=== PATIENT | female | born 1980 | race Caucasian/White ===

== ENCOUNTER 2016-07-14 04:09 | Inpatient (IN) | payer BC, OTHER ==
[2016-07-14] MEDS ORDERED: Mineral Oil Sterile, TOPICAL* 25 ML BTL ONE (13:17)
[2016-07-14] MEDS ORDERED: oxyCODONE/Acetamin 5/325 MG* TAB PO PRN (15:55)
[2016-07-14] MEDS ORDERED: Dibucaine 1% 28.35 GM TUBE PR PRN (15:55)
[2016-07-14] MEDS ORDERED: Acetaminophen TAB* 325 MG PO PRN (15:55)
[2016-07-14] MEDS: Witch Hazel PAD* JAR TOPICAL PRN (19:29)
[2016-07-14] MEDS: Docusate CAP* 100 MG PO SCH (19:42)
[2016-07-14] MEDS: Ibuprofen TAB* 600 MG PO PRN (19:42)
[2016-07-15 06:54] LABS: Hematocrit 40 % (35-47); Hemoglobin 13.4 g/dl (12.0-16.0); Mean Corpuscular HGB Conc 34 g/dl (31-36); Mean Corpuscular Hemoglobin 31 pg (27-31); Mean Corpuscular Volume 93 fL (80-97); Mean Platelet Volume 8 um3 (7.4-10.4); Red Blood Count 4.31 10^6/ul (4.0-5.4); Red Cell Distribution Width 13 % (10.5-15); White Blood Count 18.6 10^3/ul (3.5-10.8)
[2016-07-15] MEDS: Ibuprofen TAB* 600 MG PO PRN ×3 (08:44→21:20)
[2016-07-15] MEDS: Docusate CAP* 100 MG PO SCH ×3 (08:44→21:21)
[2016-07-15] MEDS ORDERED: Ferrous Gluconate TAB* 324 MG TAB PO SCH (09:00)
--- NOTE | 2016-07-15 10:17 | PTEDU ---
Patient Name: BIB SANCHES BIB SANCHES selected video: Follow Me Mum: [employer] [facility] [employer] Successful to view on 06/23 at 10:16:49 AM from [email or web address]
[2016-07-15] MEDS: Witch Hazel PAD* JAR TOPICAL PRN (10:42)
--- NOTE | 2016-07-15 16:26 | PTEDU ---
Patient Name: BIB SANCHES BIB SANCHES selected video: BBOB: Nurturing Your Gorgeous \T\Growing Baby by to view on 07/15/2016 at 4:25:23 PM from [email or web address]
[2016-07-16] MEDS: Ibuprofen TAB* 600 MG PO PRN ×2 (03:05→09:07)
[2016-07-16 07:56] VITALS: BP 127/75
[2016-07-16] MEDS: Docusate CAP* 100 MG PO SCH ×2 (09:07→14:06)
--- NOTE | 2016-07-16 13:23 | PTEDU ---
Patient Name: BIB SANCHES BIB SANCHES selected video: BBOB: Bonding Through Massage to view on 07/16/2016 at 1:21 :38 PM from [email or web address]
--- NOTE | 2016-07-16 13:23 | PTEDU ---
Patient Name: BIB SANCHES BIB SANCHES selected video: Never Ever Shake a Baby to view on 07/16/2016 at 1:22:42 PM from Tyrese [id number]
== END 2016-07-16 14:16 | disposition home or self-care (01) | DRG 560 ==
LOC: MCHOBOUT 04:09 → MCHOB 06:59
PROVIDERS: ADMIT Midwife; ATTEND Nurse Practitioner
PROC: 0KQM0ZZ Repair Perineum Muscle, Open Approach (ICD-10-PCS; principal; 2016-07-14)
PROC: 4A1HX4Z Monitoring of Products of Conception, Cardiac Electrical Activity, External Approach (ICD-10-PCS; 2016-07-14)
PROC: 10E0XZZ Delivery of Products of Conception, External Approach (ICD-10-PCS; 2016-07-14)
PROC: 10907ZC Drainage of Amniotic Fluid, Therapeutic from Products of Conception, Via Natural or Artificial Opening (ICD-10-PCS; 2016-07-14)
DX: O69.81X0 Labor and delivery complicated by cord around neck, without compression, not applicable or unspecified (principal); E74.02 Pompe disease; O70.1 Second degree perineal laceration during delivery; Z3A.39 39 weeks gestation of pregnancy; Z37.0 Single live birth; Z81.8 Family history of other mental and behavioral disorders; O26.893 Other specified pregnancy related conditions, third trimester
CPT/HCPCS: 36415; 85025; A9270-GY

== ENCOUNTER 2016-08-24 17:35 | Day surgery (SDC) | payer BC ==
--- NOTE | 2016-08-24 20:38 | RAD ---
Indication: Persistent bleeding, 6 weeks . Real-time sonography of the pelvis was performed. The uterus measures 11.3 x 5.8 x 3.0 cm. Endometrial echo measures up to 29 mm and demonstrates thickening and echogenic material. The possibility of products of conception should BE considered. The right ovary measures 29 x 20 x 15 mm. Left ovary measures 21 x 18 x 16 mm. IMPRESSION: Thickened endometrium measuring up to 29 mm with heterogeneous echogenic material. The possibility of retained products of conception should BE considered.
[2016-08-24 20:48] LABS: Hematocrit 40 % (35-47); Hemoglobin 13.4 g/dl (12.0-16.0); Mean Corpuscular HGB Conc 33 g/dl (31-36); Mean Corpuscular Hemoglobin 31 pg (27-31); Mean Corpuscular Volume 94 fL (80-97); Mean Platelet Volume 7 um3 (7.4-10.4); Red Blood Count 4.26 10^6/ul (4.0-5.4); Red Cell Distribution Width 13 % (10.5-15); White Blood Count 8.4 10^3/ul (3.5-10.8)
[2016-08-24 21:06] LABS: Albumin 3.9 g/dL (3.2-5.2); BUN/Creatinine Ratio 15.1 (8-20); Calcium 9.2 mg/dL (8.6-10.3); EGFR African American 167.9 (>60); EGFR Non-African American 130.5 (>60); Globulin 2.7 g/dL (2-4); Potassium 3.6 mmol/L (3.5-5.0); Total Bilirubin 0.3 mg/dL (0.2-1.0); Total Protein 6.6 g/dL (6.4-8.9)
[2016-08-24] MEDS ORDERED: DOXYcycline IV* 100 MG in NS 0.9% 250 ML* 250 ML IVPB ONE (23:19)
--- NOTE | 2016-08-24 23:23 | ED ---
Julien Calderon Alok, scribed for Chantelle Barajas MD on 08/24/16 at 1939 . Abdominal Pain/Female - HPI Summary HPI Summary: 36F presents to the ED for vaginal bleeding on and off since her vaginal 6 weeks ago, worsening today. Pt states that she began bleeding in the first two weeks since giving to her child which subsided until one week ago where she has been bleeding off and on. Pt states that since 1300 this afternoon her vaginal bleeding has been heavier than before, and has bled through a total of 5 pads since this afternoon. Pt also notes vaginal pain described as "muscular" as well as notes abd cramping. Pt denies fever. Pt has had no pregnancies before is currently breast feeding her baby. Pt drinks ETOH occasionally. - History of Current Complaint Chief Complaint: EDVaginalBleeding Stated Complaint: VAGINAL BLEEDING Time Seen by Provider: 08/24/16 18:49 Hx Obtained From: Patient ?: No Onset/Duration: Lasting Days, Still Present, Worse Since - Today Severity Initially: Moderate Severity Currently: Moderate Pain Intensity: 4 Pain Scale Used: 0-10 Numeric Location: Diffuse Character: Cramping Aggravating Factor(s): Nothing Alleviating Factor(s): Nothing Associated Signs and Symptoms: Positive: Vaginal Bleeding. Negative: Fever Allergies/Adverse Reactions: Allergies Allergy/AdvReac Type Severity Reaction Status Date / Time No Known Allergies Allergy Verified 06/22/16 21:13 PMH/Surg Hx/FS Hx/Imm Hx Endocrine/Hematology History: Denies: Hx Diabetes Cardiovascular History: Denies: Hx Hypertension History: Reports: Other Problems/Disorders - ulcerative colitis Infectious Disease History: Denies: Traveled Outside the [place] in Last 30 Days - Family History Known Family History: Negative: Diabetes - Social History Lives: With Family Alcohol Use: Occasionally Hx Substance Use: No Substance Use Type: Reports: None Hx Tobacco Use: No Smoking Status (MU): Never Smoked Tobacco Have You Smoked in the Last Year: No Review of Systems Negative: Fever Positive: Abdominal Pain Positive: other - Vaginal bleeding, Vaginal pain All Other Systems Reviewed And Are Negative: Yes Physical Exam Triage Information Reviewed: Yes Vital Signs On Initial Exam: Initial Vitals Temp Pulse Resp BP Pulse Ox 98.2 F 79 16 117/80 100 08/24/16 17:40 08/24/16 17:40 08/24/16 17:40 08/24/16 17:40 08/24/16 17:40 Vital Signs Reviewed: Yes Appearance: Positive: Well-Appearing, No Pain Distress Skin: Positive: Warm, Skin Color Reflects Adequate Perfusion, Dry Eyes: Positive: EOMI, CHANCE ENT: Positive: Pharynx normal, TMs normal Neck: Positive: Supple, Nontender Respiratory/Lung Sounds: Positive: Clear to Auscultation, Breath Sounds Present. Negative: Rales, Rhonchi, Wheezes Cardiovascular: Positive: RRR, Other - no gallop. Negative: Murmur, Rub Abdomen Description: Positive: Nontender, Soft, Other: - no rebound. Negative: Distended, Guarding Bowel Sounds: Positive: Present Pelvic Exam: Positive: other - Moderate amount of bleeding with no pain Musculoskeletal: Positive: Strength/ROM Intact. Negative: Edema Left, Edema Right Neurological: Positive: Sensory/Motor Intact, Alert, Oriented to Person Place, Time, CN Intact II-III Psychiatric: Positive: Affect/Mood Appropriate Diagnostics - Vital Signs Vital Signs Temp Pulse Resp BP Pulse Ox 08/24/16 17:40 98.2 F 79 16 117/80 100 - Laboratory Lab Results: Lab Results 08/24/16 08/24/16 Range/Units 20:38 20:38 WBC 8.4 (3.5-10.8) 10^3/ul RBC 4.26 (4.0-5.4) 10^6/ul Hgb 13.4 (12.0-16.0) g/dl Hct 40 (35-47) % MCV 94 (80-97) fL MCH 31 (27-31) pg MCHC 33 (31-36) g/dl RDW 13 (10.5-15) % Plt Count 281 (150-450) 10^3/ul MPV 7 L (7.4-10.4) um3 Neut % (Auto) 60.3 (38-83) % Lymph % (Auto) 25.1 (25-47) % [place] % (Auto) 11.3 H (1-9) % Eos % (Auto) 2.4 (0-6) % Baso % (Auto) 0.9 (0-2) % Absolute Neuts (auto) 5.1 (1.5-7.7) 10^3/ul Absolute Lymphs (auto) 2.1 (1.0-4.8) 10^3/ul Absolute Monos (auto) 1.0 H (0-0.8) 10^3/ul Absolute Eos (auto) 0.2 (0-0.6) 10^3/ul Absolute Basos (auto) 0.1 (0-0.2) 10^3/ul Absolute Nucleated RBC 0 10^3/ul Nucleated RBC % 0 Sodium 137 (133-145) mmol/L Potassium 3.6 (3.5-5.0) mmol/L Chloride 107 (101-111) mmol/L Carbon Dioxide 24 (22-32) mmol/L Anion Gap 6 (2-11) mmol/L BUN 8 (6-24) mg/dL Creatinine 0.53 (0.51-0.95) mg/dL Est GFR ( Amer) 167.9 (>60) Est GFR (Non-Af Amer) 130.5 (>60) BUN/Creatinine Ratio 15.1 (8-20) Glucose 89 (70-100) mg/dL Calcium 9.2 (8.6-10.3) mg/dL Total Bilirubin 0.30 (0.2-1.0) mg/dL AST 14 (13-39) U/L ALT 13 (7-52) U/L Alkaline Phosphatase 76 (34-104) U/L Total Protein 6.6 (6.4-8.9) g/dL Albumin 3.9 (3.2-5.2) g/dL Globulin 2.7 (2-4) g/dL Albumin/Globulin Ratio 1.4 (1-3) Beta HCG, Quant 13.07 mIU/mL Result Diagrams: 08/24/16 20:38 08/24/16 20:38 Lab Statement: Any lab studies that have been ordered have been reviewed, and results considered in the medical decision making process. - Additional Comments Diagnostic Additional Comments: Pelvis US - IMPRESSION: Thickened endometrium measuring up to 29 mm with heterogeneous echogenic material. The possibility of retained products of conception should BE considered. Abdominal Pain Fem Course/Dx - Course Course Of Treatment: case discussed with Dr. Paris who is admitting the pt - Diagnoses Provider Diagnoses: Retained products of conception - Provider Notifications Discussed Care Of Patient With: Evelyn Luis - Will come examine pt Time Discussed With Above Provider: 21:50 Discharge - Discharge Plan Condition: Stable Disposition: ADMITTED TO [facility] documentation as recorded by the Julien weber Alok accurately reflects the service I personally performed and the decisions made by me, Chantelle Barajas MD.
--- NOTE | 2016-08-24 23:28 | HP ---
H&P (Free Text) History and Physical: CC: vaginal bleeding HPI: Pt is 6wks pp s/p NVD. Her bleeding had stopped completely and then about 1wk ago she started having light bleeding until this afternoon when it became very heavy and she started passing clots and was soaking through 1 maxi pad/ hour. She has had some period cramping today. No fever/chills. Feeling well otherwise. Breast-feeding her daughter exclusively without any issues. Meds: PNV NKDA PMH: ulcerative colitis PSH: umbilical hernia repair Outbound Tele[employer] Representative Hx: , 1 ETOP Soc Hx: no alcohol, tobacco or illicit drug use ROS: otherwise negative Exam VS stable, afebrile Gen: NAD Abd: soft, very minimal uterine tenderness to deep palpation Pelvic: cx 1cm dilated, mod blood on exam. US: suspicious for retained POC, 2.9cm heterogenous endometrial stripe H/H wnl Assessment: 6wks pp with retained POC and heavy vaginal bleeding. Plan: suction D&C
[2016-08-25] MEDS ORDERED: Chloroprocaine 2%* 20 ML VIAL ONE (00:26)
[2016-08-25] MEDS ORDERED: fentaNYL* 50 MCG/ML 2 ML VIAL (100 MCG VIAL) ONE ×2 (00:26→02:13)
[2016-08-25] MEDS ORDERED: Famotidine IV* 10 MG/ML 2 ML (20 mg) ONE (00:27)
[2016-08-25] MEDS ORDERED: Acetaminophen TAB* 325 MG PO PRN (00:59)
[2016-08-25] MEDS ORDERED: Ondansetron INJ* 2 MG/ML VIAL IV PRN (00:59)
[2016-08-25] MEDS ORDERED: PROCHLORPERAZINE INJ 5 MG/ML 2 ML VIAL IV PRN (00:59)
[2016-08-25] MEDS ORDERED: Ketorolac INJ* 30 MG/ML 1 ML VIAL IV PRN (00:59)
[2016-08-25] MEDS ORDERED: fentaNYL* 50 MCG/ML 2 ML VIAL (100 MCG VIAL) IV PRN (00:59)
[2016-08-25] MEDS ORDERED: Misoprostol TAB* 200 MCG ONE (01:00)
[2016-08-25] MEDS ORDERED: Ondansetron INJ* 2 MG/ML VIAL ONE (01:01)
[2016-08-25] MEDS ORDERED: OXYTOCIN* 10 UNITS/ML 1 ML VIAL ONE (01:12)
[2016-08-25] MEDS ORDERED: EPHEDrine (Pressors)* 50 MG/ML VIAL ONE (01:16)
[2016-08-25] MEDS ORDERED: Ketorolac INJ* 30 MG/ML 1 ML VIAL ONE (01:53)
[2016-08-25 03:00] VITALS: BP 102/61
--- NOTE | 2016-08-25 15:12 | OP ---
DATE OF OPERATION: 08/24/16 [facility] DATE OF : 80 SURGEON: Evelyn Luis MD ANESTHESIOLOGIST: Dr. Loja ANESTHESIA: Spinal. PRE-OP DIAGNOSIS: Retained products of conception. POST-OP DIAGNOSIS: Retained products of conception. OPERATIVE PROCEDURE: Suction dilation and curettage. INDICATIONS: The patient arrived to the emergency department with heavy vaginal bleeding. She is 6 weeks' post-. Her bleeding had stopped few weeks after delivery, but then started again a week ago, was very light until today when the bleeding increased and she was saturating 1 maxi pad an hour. She arrived to the emergency department where her vital signs were stable. Hemoglobin and hematocrit were normal, but ultrasound showed suspected retained products of conception. On exam, her cervix did seem to be 1-cm dilated. This situation was discussed with the patient and her partner and a decision was made to proceed with surgical removal of the retained products of conception. The risks of perforation, hemorrhage, and infection were reviewed with the patient and consents were signed. She was also given the option of medical management with misoprostol. ANESTHESIA: Spinal. ESTIMATED BLOOD LOSS: 500 mL. SPECIMEN: Products of conception. FLUIDS: Crystalloid. DRAINS: 200 mL of urine drained by a straight cath prior to the procedure. FINDINGS: There is a portion of densely adherent likely placenta located at the fundus of the uterus, which I was unable to completely remove via suction or sharp curette. Intraoperatively, the patient was given 800 mcg of misoprostol rectally and was also given Pitocin in her LR. The procedure was performed under ultrasound guidance. DESCRIPTION OF PROCEDURE: The patient was taken to the operating room where she was given spinal anesthesia that was found to be adequate. She was prepped and draped in the dorsal lithotomy position in [facility]. Speculum was placed in the vagina to expose the cervix and the anterior lip of the cervix was grasped with a single-tooth tenaculum. The uterus was sounded at 10.5 cm. Size 8 suction cannula was then assembled and turned on and inserted into the uterine cavity under ultrasound guidance. Small amount of products of conception were received as well as moderate amount of blood. A piece of retained product was noted at the fundus of the uterus that was difficult to remove with a suction cannula; therefore, sharp curettage was performed under ultrasound guidance and small pieces of the retained products were received via curettage; however, the bulk of the retained products could not be removed from the uterine wall. Due to the moderate amount of bleeding, the patient was given misoprostol and Pitocin was added to her IV fluid. Along with bimanual massage, this resulted in improved hemostasis and the uterus became firm. The patient was observed for several minutes and continued good hemostasis was noted. The tenaculum was removed from the cervix. The patient was placed back in the supine position. A repeat ultrasound was done and there appeared to still be approximately 3-cm portion of retained products of conception at the fundus of the uterus. The patient was then moved to the stretcher and taken to the recovery room in stable condition. [id number]/[facility] #: [id number] NICO
== END 2016-08-25 03:20 | disposition home or self-care (01) ==
LOC: ED 17:35 → OR 23:19
PROVIDERS: ATTEND Obstetrics & Gynecology
DX: O72.2 Delayed and secondary postpartum hemorrhage (principal)
CPT/HCPCS: 36415; 76856; 80053; 84702; 85025; 88305; 96374; 96375; 99284; A9270-GY; J1885; J2400; J2405; J2590; J3010

== ENCOUNTER 2018-08-07 17:56 | Inpatient (IN) | payer BC ==
[2018-08-07] MEDS ORDERED: Buffered Lidocaine 1% SYRIN* 1 ML/SYRINGE INTRADERM ONE (22:41)
[2018-08-07] MEDS ORDERED: Misoprostol TAB* 100 MCG VAGINAL ONE (22:41)
[2018-08-07] MEDS ORDERED: Lactated Ringers 1000 ML Bag* 1,000 ML IV ONE (22:41)
--- NOTE | 2018-08-07 22:50 | HP ---
General Information - Reason for Visit ROM @4pm. [place]ingen one small gush of fluid. has not really felt any leaking since. Started having some mild cramps initially but then they resolved. - General Information Maternal Age: 37 Grav: 3 Para: 1 SAB: 0 IEA: 1 Estimated Due Date: 08/08/18 Determined By: LMP Maternal Blood Type and Rh: O Positive - Results this Serology/RPR Result: Non-Reactive Rubella Result: Immune HBsAg Result: Negative HIV Result: Negative GBS Culture Result: Negative Past Medical History Delivery History: Hx Complicated Vaginal Delivery - retained POC Pertinent Past Medical History: Non-Contributory Pertinent Past Surgical History: See Records Pertinent Family History: Non-Contributory - Antepartal Records Antepartal Records: Reviewed, Uncomplicated Review of Systems Constitutional: Comfortable CV Complaint: No Respiratory: Shortness of Breath: No Gastrointestinal: No Nausea/Vomiting, Normal Bowel Movement Genitourinary: Leaking Fluid, No Dysuria, No Bleeding Musculoskeletal: No Complaint Neurological: No Headache Movement: Normal Exam Allergies/Adverse Reactions: Allergies No Known Allergies Allergy (Verified 07/06/18 12:56) WNL Lab Values - Entire Visit: Laboratory Tests 08/07/18 18:14 Vag Amniotic Fld Detect Positive - Measurements Height: 5 ft 8.5 in Weight: 192 lb Weight in lbs: [phone] Body Mass Index (BMI): 28.8 Pre- Weight: 151 lb Weight Gained This : 41 lbs and 0 ozs - Exam Breast: Breast Exam Deferred Extremities: No Edema Heart: Normal Rhythm/Heart Sounds HEENT: No Significant Findings - Abdominal Exam Abdomen Exam: Non-Tender - Ultrasound/Biophysical Profile Ultrasound Status: Not Done Targeted Exam Findings Cervical Exam: 1cm Effacement: 50% Station: -3 Presenting Part: Vertex Membrane Status: Questionable SROM Amniotic Fluid Evaluation: Positive ROM Plus EFM Findings - External Monitor Findings Baseline Heart Rate: 120 External Monitor Findings: Accelerations Present, No Pattern of Variable or Late Decelerations, Variability Moderate, Baseline Stable Contractions: None Assessment/Plan - Assessment @39.6wks with suspected ROM, no signs of labor. Hx significant for retained POC necessitating D&C x2 @6&7wks pp. - Plan Plan: Induction, Cervical Ripening, Admit - Anticipate Vaginal Delivery
[2018-08-07] MEDS ORDERED: Misoprostol TAB* 100 MCG PO SCH (23:00)
[2018-08-07] MEDS ORDERED: Lactated Ringers 1000 ML Bag* 1,000 ML IV SCH (23:00)
[2018-08-08] MEDS ORDERED: Promethazine INJ(RESTRICTED)* 25 MG/ML 1 ML VIAL IV PRN (03:31)
[2018-08-08] MEDS ORDERED: Nalbuphine* 10 MG/ML 1 ML VIAL IV PRN (03:31)
[2018-08-08 04:13] LABS: ABS Basophils 0.1 10^3/ul (0-0.2); ABS Eosinophils 0.1 10^3/ul (0-0.6); ABS Lymphocytes 2.4 10^3/ul (1.0-4.8); ABS Neutrophils 5.7 10^3/ul (1.5-7.7); Eosinophil % 1.3 %; Hematocrit 39 % (35-47); Hemoglobin 13.1 g/dL (12.0-16.0); Lymphocyte % 25.6 %; Mean Corpuscular HGB Conc 34 g/dL (31-36); Mean Corpuscular Hemoglobin 31 pg (27-31); Mean Corpuscular Volume 91 fL (80-97); Mean Platelet Volume 7.4 fL (7.4-10.4); Platelet Count 204 10^3/uL (150-450); Red Blood Count 4.22 10^6 /uL (3.70-4.87); Red Cell Distribution Width 13 % (10-15); White Blood Count 9.3 10^3/uL (3.5-10.8)
[2018-08-08] MEDS ORDERED: OBEPIDURAL* 250 ML EPIDURAL ONE (07:19)
[2018-08-08] MEDS ORDERED: Oxytocin in LR* 20 UNITS/1,000 ML BAG IVPB ONE ×3 (08:12→12:50)
[2018-08-08] MEDS ORDERED: Famotidine TAB* 20 MG PO PRN (08:14)
[2018-08-08] MEDS ORDERED: Lactated Ringers 1000 ML Bag* 1,000 ML IV ONE (08:14)
[2018-08-08] MEDS ORDERED: Sodium Citrate/Citric Acid* 15 ML UDC PO PRN (08:14)
[2018-08-08] MEDS ORDERED: Phenylephrine 40 MCG/ML SYRINGE IV PUSH PRN ×2 (08:14)
[2018-08-08] MEDS ORDERED: Phenylephrine 40 MCG/ML SYRINGE ONE (08:30)
[2018-08-08] MEDS ORDERED: OBEPIDURAL* 250 ML EPIDURAL SCH (09:00)
[2018-08-08] MEDS ORDERED: Lactated Ringers 1000 ML Bag* 1,000 ML IV SCH ×2 (09:00→10:00)
[2018-08-08] MEDS ORDERED: Glycerin ADULT SUPP PR PRN (09:40)
[2018-08-08] MEDS ORDERED: Witch Hazel PAD* JAR TOPICAL PRN (09:40)
[2018-08-08] MEDS ORDERED: ceFOXitin 2 GM IVPREMIX* 2 GM/50 ML BAG IVPB ONE ×2 (09:43→18:15)
[2018-08-08] MEDS ORDERED: Lidocaine 1% INJ* 10 MG/ML 30 ML SDV ONE (09:48)
--- NOTE | 2018-08-08 09:48 | PROCNOTE ---
[facility] OB: Delivery Note - Delivery A Date of : 08/08/18 Time of : 09:18 Sex: Male Score 1 Minute: 9 Score 5 Minutes: 9 Gestational Age in Weeks and Days at Delivery: 40 Weeks and 0 Days Delivery Method: Spontaneous Vaginal Labor: Induced Did Patient attempt ?: N/A, No Previous Amniotic Fluid: Clear Estimated Blood Loss: 500 Anesthesia/Analgesia: CEI for Labor Delivered By: Josh Felix - Nursery Level of Nursery: Regular/Bedside - Perineum Perineal Injury: Perineal Laceration Perineal Injury Comment: small second degree Perineal Repair: By Delivering Practioner - repair after 20 cc 1% lidocaine/ 2.0 vicryl used standard fashion - Events Delivery Events of Note: Pitocin Only After Delivery - placenta delivered spontaneous/3 vc / exploration of uterus to assure intact/ no evidence of retained placenta., Post- Bleeding - Meds Given
[2018-08-08] MEDS ORDERED: Misoprostol TAB* 200 MCG ONE (11:25)
[2018-08-08] MEDS ORDERED: Simethicone TAB* 80 MG TAB.CHEW PO SCH (12:30)
[2018-08-08] MEDS ORDERED: Misoprostol TAB* 200 MCG PR ONE (12:41)
[2018-08-08] MEDS ORDERED: Oxytocin in LR* 20 UNITS/1,000 ML BAG IVPB SCH (13:00)
[2018-08-08] MEDS ORDERED: Carboprost Tromethamine* 250 MCG INJ ONE (14:44)
[2018-08-08 14:59] LABS: ABS Basophils 0.1 10^3/ul (0-0.2); ABS Lymphocytes 1.4 10^3/ul (1.0-4.8); ABS Monocytes 1.2 10^3/ul (0-0.8); ABS Neutrophils 11.5 10^3/ul (1.5-7.7); Hematocrit 29 % (35-47); Hemoglobin 10.1 g/dL (12.0-16.0); Mean Corpuscular HGB Conc 35 g/dL (31-36); Mean Corpuscular Hemoglobin 32 pg (27-31); Mean Corpuscular Volume 92 fL (80-97); Mean Platelet Volume 7.7 fL (7.4-10.4); Nucleated Red Blood Cells % 0.1; Platelet Count 166 10^3/uL (150-450); Red Cell Distribution Width 13 % (10-15); White Blood Count 14.3 10^3/uL (3.5-10.8)
[2018-08-08 15:19] LABS: Schistocytes ABSENT
[2018-08-08 15:21] LABS: Platelet Count 166 10^3/ul (150-450)
[2018-08-08 15:59] LABS: Activated Partial Thrombo Time 31.8 seconds (26.0-38.0); INR 0.85 (0.82-1.09)
[2018-08-08] MEDS ORDERED: Carboprost Tromethamine* 250 MCG INJ IM ONE (16:00)
[2018-08-08 16:06] LABS: Fibrinogen 305.3 mg/dL (110.8-404.3)
[2018-08-08] MEDS: Docusate CAP* 100 MG PO SCH ×2 (19:36→19:40)
[2018-08-08] MEDS: Ferrous Gluconate TAB* 324 MG TAB PO SCH (21:37)
[2018-08-08] MEDS: Acetaminophen TAB* 325 MG PO PRN (21:47)
[2018-08-08] MEDS: Dibucaine 1% 28.35 GM TUBE PR PRN (21:47)
[2018-08-09] MEDS: Acetaminophen TAB* 325 MG PO PRN (07:36)
[2018-08-09] MEDS: Docusate CAP* 100 MG PO SCH ×3 (07:36→20:39)
[2018-08-09] MEDS: Ferrous Gluconate TAB* 324 MG TAB PO SCH ×2 (07:36→20:39)
[2018-08-09] MEDS: Prenatal Vitamin TAB PO SCH (07:36)
[2018-08-09 07:53] LABS: ABS Eosinophils 0.1 10^3/ul (0-0.6); ABS Monocytes 0.9 10^3/ul (0-0.8); ABS Neutrophils 6.8 10^3/ul (1.5-7.7); Eosinophil % 0.6 %; Hematocrit 23 % (35-47); Hemoglobin 8.3 g/dL (12.0-16.0); Lymphocyte % 20.6 %; Mean Corpuscular HGB Conc 36 g/dL (31-36); Mean Corpuscular Hemoglobin 33 pg (27-31); Mean Corpuscular Volume 92 fL (80-97); Mean Platelet Volume 7.4 fL (7.4-10.4); Platelet Count 183 10^3/uL (150-450); Red Blood Count 2.53 10^6 /uL (3.70-4.87); Red Cell Distribution Width 14 % (10-15); White Blood Count 9.8 10^3/uL (3.5-10.8)
--- NOTE | 2018-08-09 19:39 | PTEDU ---
Patient Name: BIB SANCHES BIB SANCHES selected video: Metastatic Breast Cancer: Mckenzie's Story to view on 08/09/2018 at 7:38:13 PM from [email or web address]
--- NOTE | 2018-08-09 19:40 | PTEDU ---
Patient Name: BIB SANCHES BIB SANCHES selected video: Follow Me Mum: [employer] to Successful to view on 08/09 at 7:40:04 PM from [email or web address]
--- NOTE | 2018-08-09 20:36 | PTEDU ---
Patient Name: BIB SANCHES BIB SANCHES selected video: BBOB: Bonding Through Massage to view on 08/09/2018 at 8:35: 27 PM from [email or web address]
[2018-08-09] MEDS: Dibucaine 1% 28.35 GM TUBE PR PRN (20:41)
[2018-08-10] MEDS: Prenatal Vitamin TAB PO SCH (07:44)
[2018-08-10] MEDS: Ferrous Gluconate TAB* 324 MG TAB PO SCH (07:44)
[2018-08-10] MEDS: Acetaminophen TAB* 325 MG PO PRN (07:44)
[2018-08-10] MEDS: Docusate CAP* 100 MG PO SCH (07:44)
[2018-08-10 08:54] VITALS: BP 132/75
== END 2018-08-10 14:20 | disposition home or self-care (01) | DRG 560 ==
LOC: MCHOBOUT 17:56 → UNDOADMIN 20:12 → MCHOB 20:12
PROVIDERS: ADMIT Obstetrics & Gynecology; ATTEND Obstetrics & Gynecology
PROC: 10E0XZZ Delivery of Products of Conception, External Approach (ICD-10-PCS; principal; 2018-08-08)
PROC: 3E033VJ Introduction of Other Hormone into Peripheral Vein, Percutaneous Approach (ICD-10-PCS; 2018-08-08)
PROC: 0KQM0ZZ Repair Perineum Muscle, Open Approach (ICD-10-PCS; 2018-08-08)
DX: O42.02 Full-term premature rupture of membranes, onset of labor within 24 hours of rupture (principal); O72.0 Third-stage hemorrhage; Z37.0 Single live birth; O70.1 Second degree perineal laceration during delivery; O90.81 Anemia of the puerperium; D64.9 Anemia, unspecified; Z3A.40 40 weeks gestation of pregnancy
CPT/HCPCS: 36415; 84112; 85025; 85049; 85362; 85384; 85610; 85730; 86850; 86900; 86901; 88307; A9270-GY; J0694; J2300; J2550; S0191